=== PATIENT | female | born 1970 ===

== ENCOUNTER 2017-06-07 13:36 | Emergency (ER) | payer OTHER ==
--- NOTE | 2017-06-07 15:09 | UC ---
Respiratory Complaint HPI - HPI Summary HPI Summary: Has been coughing for several weeks. Son was dx with pertussis yesterday, has had bad nighttime cough for about 2 weeks. Health Department suggested she get seen. Denies new fever, no wheezing or trouble breathing. No strong respiratory history. Has had a couple episodes of post-tussive vomiting. - History of Current Complaint Hx Obtained From: Patient Hx Last Menstrual Period: 05/16/2017 ?: No Onset/Duration: Gradual Onset, Lasting Weeks Timing: Constant Severity Initially: Mild Severity Currently: Mild Character: Cough: Nonproductive Aggravating Factors: Nothing Alleviating Factors: Nothing Associated Signs And Symptoms: Negative: Fever, Chills, Wheezing, Hemoptysis - Risk Factors Pulmonary Embolism Risk Factors: Negative Cardiac Risk Factors: Negative Pseudomonas Risk Factors: Negative Tuberculosis Risk Factors: Negative <Maggie Arnold - Last Filed: 06/07/17 15:03> <Jennifer Murray - Last Filed: 06/07/17 16:06> - History of Current Complaint Chief Complaint: UCRespiratory Stated Complaint: COUGH Time Seen by Provider: 06/07/17 14:52 - Allergies/Home Medications Allergies/Adverse Reactions: Allergies Allergy/AdvReac Type Severity Reaction Status Date / Time No Known Allergies Allergy Verified 06/07/17 13:43 Home Medications: Home Medications Nicotine Polacrilex [Nicorette] 06/07/17 [History] PMH/Surg Hx/FS Hx/Imm Hx Previously Healthy: Yes - Surgical History Surgical History: None - Family History Known Family History: Negative: Blood Disorder - Social History Occupation: Employed Part-time - [employer] Alcohol Use: Rare Substance Use Type: None Smoking Status (MU): Former Smoker - Immunization History Most Recent Influenza Vaccination: none <Maggie Arnold - Last Filed: 06/07/17 15:03> Review of Systems Constitutional: Negative Skin: Negative Eyes: Negative ENT: Negative Respiratory: Cough Cardiovascular: Negative Gastrointestinal: Negative Genitourinary: Negative Motor: Negative Neurovascular: Negative Musculoskeletal: Negative Neurological: Negative Psychological: Negative Is Patient Immunocompromised?: No All Other Systems Reviewed And Are Negative: Yes <Maggie Arnold - Last Filed: 06/07/17 15:03> Physical Exam Triage Information Reviewed: Yes Appearance: Well-Appearing, No Pain Distress, Well-Nourished Vital Signs: Initial Vital Signs Temp 100.2 F 06/07/17 13:43 Pulse 118 06/07/17 13:43 Resp 18 06/07/17 13:43 BP 145/75 06/07/17 13:43 Pulse Ox 100 06/07/17 13:43 Vital Signs Reviewed: Yes Eye Exam: Normal Eyes: Positive: Conjunctiva Clear ENT Exam: Normal ENT: Positive: Normal ENT inspection, Hearing grossly normal, Pharynx normal, TMs normal. Negative: TM bulging, TM dull, TM red Dental Exam: Normal Neck exam: Normal Neck: Positive: Supple, Nontender, No Lymphadenopathy Respiratory Exam: Other - no cough noted Respiratory: Positive: Chest non-tender, Lungs clear, Normal breath sounds, No respiratory distress, No accessory muscle use Cardiovascular Exam: Normal Cardiovascular: Positive: RRR, No Murmur Musculoskeletal Exam: Normal Neurological Exam: Normal Neurological: Positive: Alert Psychological Exam: Normal Skin Exam: Normal <Maggie Arnold - Last Filed: 06/07/17 15:03> Vital Signs: Initial Vital Signs Temp 100.2 F 06/07/17 13:43 Pulse 118 06/07/17 13:43 Resp 18 06/07/17 13:43 BP 145/75 06/07/17 13:43 Pulse Ox 100 06/07/17 13:43 <Jennifer Murray - Last Filed: 06/07/17 16:06> Diagnostic Evaluation - Laboratory O2 Sat by Pulse Oximetry: 100 <Maggie Arnold - Last Filed: 06/07/17 15:03> Respiratory Course/Dx - Differential Dx/Diagnosis Provider Diagnoses: pertussis exposure. acute cough <Maggie Arnold - Last Filed: 06/07/17 15:03> Discharge <Maggie Arnold - Last Filed: 06/07/17 15:03> <Jennifer Murray - Last Filed: 06/07/17 16:06> - Discharge Plan Condition: Stable Disposition: HOME Prescriptions: Azithromyxin DARREN (NF) [Z-Darren (Zithromax) 250 mg tabs #6] 2 tab PO .TODAY, THEN 1 DAILY #6 tab Patient Education Materials: Pertussis (ED) Referrals: No Primary Care Phys,NOPCP [Primary Care Provider] - Additional Instructions: If you develop fever, difficulty breathing, or other worsening, please come back. If cough does not resolve within a month or two, please see a primary care provider for further evaluation. Attestations User Type: Provider - I was available for consult. This patient was seen by the FIDEL. The patient was not presented to, seen by, or examined by me. -Omar <Jennifer Murray - Last Filed: 06/07/17 16:06>
== END 2017-06-07 15:19 | disposition home or self-care (01) ==
LOC: UCEAST 13:36
DX: Z20.818 Contact with and (suspected) exposure to other bacterial communicable diseases (principal); R05 Cough; Z87.891 Personal history of nicotine dependence
CPT/HCPCS: 99202; G0463